=== PATIENT | female | born 1975 | race Two or more races ===

== ENCOUNTER → 2024-05-03 | Outpatient (CLI) | payer MEDICAID, SELFPAY ==
--- NOTE | 2024-05-03 11:00 | XR_ITS ---
Examination: Pelvic ultrasound, transabdominal, complete Technique: Transabdominal ultrasound of the pelvis performed using grayscale imaging Date and time of exam: May 03, 2024 1102 hrs. Indications: Left lower abdominal pain and tenderness beginning one month ago, vaginal bleeding postmenopausal 2 months Findings: Uterus 8.5 x 3.4 x 4.7 cm Endometrial stripe 0.15 cm Ureteral mass or intrauterine gestation Ovaries obscured by bowel gas Impression: Limited study No uterine mass or intrauterine gestation Normal endometrial stripe
== END | disposition home or self-care (01) ==
LOC: CDIM 10:47
PROVIDERS: PCP Specialist; Referring Provider Specialist; Visit Provider Specialist
DX: R10.2 Pelvic and perineal pain (principal)
CPT/HCPCS: 76856

== ENCOUNTER → 2024-09-08 | Outpatient (BNVA) | payer MEDICAID, SELFPAY | END | disposition home or self-care (01) | PROVIDERS: PCP Specialist; Referring Provider Specialist; Visit Provider Urology | DX: N13.2 Hydronephrosis with renal and ureteral calculous obstruction (principal); Z87.440 Personal history of urinary (tract) infections; K21.9 Gastro-esophageal reflux disease without esophagitis | CPT/HCPCS: 81003; 99203; G0463 ==

== ENCOUNTER 2024-09-21 07:55 | Day surgery (SDC) | payer MEDICAID, SELFPAY ==
[2024-09-20 10:09] VITALS: BMI 27.8
[2024-09-20 13:53] LABS: Alanine Aminotransferase 33 U/L (10-49); Albumin, Serum 4.9 gm/dL (3.5-5.0); Albumin/Globulin Ratio 1.6 (1.2-2.2); Alkaline Phosphatase 140 U/L (46-116); Anion Gap 8 (7-16); Aspartate Amino Transferase 29 U/L (0-34); BUN/Creatinine Ratio 10 Ratio (12-20); Bilirubin,Total 0.4 mg/dL (0.3-1.2); Blood Urea Nitrogen 7 mg/dL (9-23); Calcium 9.7 mg/dL (8.3-10.6); Calcium (Corrected) 9.7 mg/dL (8.5-10.1); Carbon Dioxide 26.8 mMol/L (20.0-31.0); Chloride 105 mMol/L (98-107); Creatinine (Component) 0.7 mg/dL (0.6-1.3); Estimated Creatinine Clearance 90.4 mL/min (>60); Globulin 3.1 gm/dL (2.3-3.5); Glucose 92 mg/dL (74-106); Osmolality,Calculated 277 (275-295); Potassium 3.5 mMol/L (3.4-5.1); Sodium 140 mMol/L (136-145); eGFR > 60 See Note
[2024-09-21] VITALS (8 sets, daily range): BP systolic 104–129; BP diastolic 36–86; PULSE 50–71; RESP 12–21; TEMP 36.2–36.7; O2SAT 98–100; BMI 26.9
[2024-09-21] MEDS: RINGERS LACTATED 1000 ML 1,000 ML 20 ML IV (09:23)
--- NOTE | 2024-09-21 09:45 | XR_ITS ---
Examination: Retrograde pyelogram right with without KUB Fluoroscopy 5 spot fluoroscopic abdomen films Date and time: September 21, 2024 1137 hours INDICATIONS: Advanced right hydronephrosis 27 mm right ureteropelvic junction calculus on CT abdomen August 06, 2024 TECHNIQUE AND FINDINGS: 5 spot abdomen films obtained demonstrating prominent right hydronephrosis Right ureteral stent satisfactory position Fluoroscopy 30 seconds 5 spot fluoroscopic films of the abdomen IMPRESSION: Retrograde pyelogram as above
--- NOTE | 2024-09-21 11:39 | SUR.PHASEI ---
1139: Pt. AAOx4, vitals stable, breathing unlabored, no complaint of pain or nausea, peripad in place, no blood noted, report received from MD Deng and Murtaza RN. Pt. upper chest appears red, notified MD Deng, MD Deng stated just to keep monitoring and call him if it progresses/doesn't go away.
[2024-09-21] MEDS: fentaNYL CIT INJ 50 mCg/ML AMP 2ML 25 MCG IV (12:00)
--- NOTE | 2024-09-21 12:13 | ESOP_ITS ---
Date of Procedure 09/21/24 Pre Op Diagnosis 2.6 cm stone right kidney with high-grade obstruction Post Op Diagnosis Same plus kinking of the right ureter at the junction of the mid and lower ureter and a stone in the right distal ureter hydronephrotic right kidney high insertion of right ureter at ureteropelvic junction Procedure Cystoscopic examination right retrograde pyelogram right ureteroscopy laser stone fragmentation stone basketing placement of right ureteral stent under fluoroscopic examination Findings Hydronephrotic right kidney, high insertion of right ureter at the ureteropelvic junction, stone in the distal ureter right Procedure Description Indication for procedure this is a 49-year-old female she was seen in urology office on consultation she has been to the emergency room with the history of right flank pain was found to have a 2.6 cm stone right kidney with high-grade obstruction she was sent to [place] and no treatment was instituted in [place]. CAT scan was reviewed by me this revealed a hydronephrotic right kidney with a large stone she was recommended above procedure procedure and complications were discussed with the patient in great detail informed consent is obtained Patient was brought to the operating room in a satisfactory condition after appropriate premedication was put on the operating table in a spine position which she was appropriately identified by surgeon and operating room staff site scope and indication of the procedure were reconfirmed with the patient. General anesthesia was given uneventfully patient was positioned in a dorsal lithotomy position at this time patient received perioperative antibiotics. 20 mg of Lasix IV was given for diuresis and for prevention of pyelocalyceal reflux infection 21 cystoscope was used to do the cystourethroscopy examination of bladder now the quadrant was carried out she had coarse bladder trabeculation no tumors stones or diverticula was identified she both ureteral orifice was identified there was no urine coming out of right ureteral orifice and left ureter was effluxing clear urine. Next open-ended Pollick catheter was inserted into the right ureteral orifice and through the open-ended Pollick catheter I placed the safety wire it was difficult to negotiate at the safety wire at the kinking of the ureter. Next I was able to negotiate the safety wire into the upper pole calyx. Next a semirigid ureteroscope was used to do this ureteroscopy. There was a stone embedded into the ureteral wall distal ureter I was able to fragment it with the laser and stone basketing was done. I advanced the ureteroscope up to the ureteropelvic junction no stone was identified. At this time I decided to place a ureteral stent right side 26 cm long 6 Bulgarian double-J proximal and is in the renal pelvis distal is in the bladder bladder was emptied scope was withdrawn gently patient after having tolerated the procedure well was sent to recovery room in a satisfactory condition to be discharged home with the full postoperative instructions verbally as well as in writing to be followed in urology office Patient is going to have MAG3 renal scan in 1 month time to assess if this kidney has a function then she is going to have removal of the stone right side Anesthesia GETA Pathology / specimen None Estimated Blood Loss 1.0 Condition Stable Disposition PACU Surgeon Karen Parker MD Surgical Staff Operation Date: 09/21/24 10:00 Case Staff Anesthesiologist: Des Deng
--- NOTE | 2024-09-21 12:40 | SUR.PHASEII ---
1240: Pt. AAOx4, vitals stable, breathing unlabored, no complaint of pain or nausea, peripad in place, no blood noted, pt. tolerated sips of water well, gave discharge instructions to the pt. and her ride using a rn intern, both verbalized understanding and had no further questions. Pt. left with all personal belongings. Pt. redness to upper chest disappeared and pt. verbalized that she felt fine.
== END 2024-09-21 12:40 | disposition home or self-care (01) ==
PROVIDERS: Anesthesiology; PCP Specialist; Referring Provider Urology; Visit Provider Urology
PROC: 0TJB8ZZ Inspection of Bladder, Via Natural or Artificial Opening Endoscopic (ICD-10-PCS; CPT 52000; principal; 2024-09-21 09:45)
DX: N13.2 Hydronephrosis with renal and ureteral calculous obstruction (principal); D64.9 Anemia, unspecified; Z87.440 Personal history of urinary (tract) infections
CPT/HCPCS: 52356; 36415; 74420; 80053; A4217; A4649; C1769; C1889; C1894; C2617; J1580; J1885; J1938; J2250; J2405; J2704; J2765; J3010; J3370; J3490; J7120

== ENCOUNTER → 2024-12-13 | Outpatient (BNVA) | payer MEDICAID, SELFPAY | END | disposition home or self-care (01) | PROVIDERS: PCP Specialist; Referring Provider Specialist; Visit Provider Urology | DX: N20.0 Calculus of kidney (principal); Z96.0 Presence of urogenital implants | CPT/HCPCS: 52310; 81003; 96372; A4217; A4649; C1894; J1580; A9270 ==

== ENCOUNTER → 2025-01-03 | Outpatient (CLI) | payer MEDICAID, SELFPAY ==
--- NOTE | 2025-01-03 14:30 | XR_ITS ---
Examination: Nuclear medicine kidney imaging flow and function Date and time: January 03 thousand 25, 1558 hours INDICATIONS: History kidney stones, advanced right hydronephrosis, 27 mm right ureteropelvic junction calculus CT stone study August 06, 2024 TECHNIQUE AND FINDINGS: Intravenous administration 10.6 mCi technetium 99m MAG3 Normal flow and function left kidney No flow no function right kidney IMPRESSION: No right renal function
== END | disposition home or self-care (01) ==
PROVIDERS: PCP Specialist; Referring Provider Urology; Visit Provider Urology
DX: N20.0 Calculus of kidney (principal); N13.30 Unspecified hydronephrosis
CPT/HCPCS: 78709; A9562

== ENCOUNTER → 2025-03-31 | Outpatient (BNVA) | payer MEDICAID, SELFPAY | END | disposition home or self-care (01) | PROVIDERS: PCP Specialist; Referring Provider Specialist; Visit Provider Urology | DX: N20.0 Calculus of kidney (principal); Q63.1 Lobulated, fused and horseshoe kidney | CPT/HCPCS: 99212; G0463 ==